=== PATIENT | female | born 1990 | race Caucasian/White ===

== ENCOUNTER 2023-03-11 12:54 | Outpatient (CLI) | payer OTHER | END 2023-03-11 14:20 | disposition home or self-care (01) | LOC: NST 12:54 | PROVIDERS: ATTEND Obstetrics & Gynecology Maternal & Fetal Medicine | DX: Z34.83 Encounter for supervision of other normal pregnancy, third trimester (principal) ==

== ENCOUNTER 2023-03-24 11:59 | Inpatient (IN) | payer OTHER ==
[~2023-03-24] VITALS: Ht 157.5 cm; Wt 2.7 kg
[2023-04-06] MEDS ORDERED: PRENATAL TABLE1 EAC1 PO (17:10)
[2023-04-07] MEDS ORDERED: DOCUSATE CALCI240 MG (15:06)
== END 2023-04-09 15:46 | disposition home or self-care (01) | DRG 788 ==
LOC: LDR 04-05 13:30 → OB/GYN 04-06 16:39
PROVIDERS: Obstetrics & Gynecology Gynecology; ADMIT Obstetrics & Gynecology; ATTEND Obstetrics & Gynecology
PROC: 3E0P7VZ Introduction of Hormone into Female Reproductive, Via Natural or Artificial Opening (ICD-10-PCS; 2023-04-06)
PROC: 4A1HXCZ Monitoring of Products of Conception, Cardiac Rate, External Approach (ICD-10-PCS; 2023-04-06)
PROC: 3E033VJ Introduction of Other Hormone into Peripheral Vein, Percutaneous Approach (ICD-10-PCS; 2023-04-07)
PROC: 10D00Z1 Extraction of Products of Conception, Low, Open Approach (ICD-10-PCS; principal; 2023-04-07 17:00)
DX: O33.8 Maternal care for disproportion of other origin (principal); Z3A.39 39 weeks gestation of pregnancy; Z37.0 Single live birth; Z20.822 Contact with and (suspected) exposure to COVID-19

== ENCOUNTER 2023-04-05 11:06 | Outpatient (CLI) | payer OTHER ==
[2023-04-06] MEDS ORDERED: PRENATAL TABLE1 EAC1 PO (17:10)
== END 2023-04-05 11:57 | disposition home or self-care (01) ==
LOC: NST 11:06
PROVIDERS: ATTEND Obstetrics & Gynecology
DX: Z34.83 Encounter for supervision of other normal pregnancy, third trimester (principal)

== ENCOUNTER → 2024-08-04 | Emergency (ER) | payer OTHER ==
[~2024-08-04] VITALS: Ht 157.5 cm; Wt 54.4 kg
[~2024-08-04] MED LIST: BENZONATATE200 M1 PO; DOCUSATE CALCI240 MG; LEVALBUTER0.63 MG/3 IH; MEDROLPACK PO; PEPCID AC20 MG PO; PRENATAL TABLE1 EAC1 PO; SINGULAIR10 MG PO; ZITHROMAX500 MG PO
== END | disposition home or self-care (01) ==
LOC: ER 10:40
DX: R53.81 Other malaise (principal); J45.901 Unspecified asthma with (acute) exacerbation; Z91.013 Allergy to seafood; Z88.6 Allergy status to analgesic agent

== ENCOUNTER 2024-08-19 12:47 | Emergency (ER) | payer OTHER ==
[~2024-08-19] VITALS: Ht 157.5 cm; Wt 54.4 kg
[2024-08-19 16:13] LABS: HEMOGLOBIN 12.1 g/dL (12.0-15.00); MEAN CELL VOLUME 91.3 fL (80.00-100.00); MEAN CORPUSCULAR HEMOGLOBIN 30.6 pg (27.00-32.0); MEAN CORPUSCULAR HGB CONC 33.5 g/dl (32.0-36.0); PLATELET COUNT 162 K/uL (150-450); RED BLOOD COUNT 3.94 M/uL (4.00-6.00); RED CELL DISTRIBUTION WIDTH 12.7 % (11.5-14.5)
[2024-08-19] MEDS ORDERED: AMOX1TAB5 PO (17:44)
[2024-08-19] MEDS ORDERED: TYLENOL325 MG PO (17:48)
== END 2024-08-19 18:35 | disposition home or self-care (01) ==
LOC: ER 12:49
DX: R53.81 Other malaise (principal); J40 Bronchitis, not specified as acute or chronic; Z20.822 Contact with and (suspected) exposure to COVID-19; Z88.6 Allergy status to analgesic agent; Z91.013 Allergy to seafood

== ENCOUNTER 2025-04-20 09:37 | Emergency (ER) | payer OTHER ==
[~2025-04-20] VITALS: Ht 157.5 cm; Wt 59.9 kg
[~2025-04-20 09:37] MED LIST changes: +AMOX1TAB5 PO; +TYLENOL325 MG PO
[2025-04-20] MEDS ORDERED: ALBUT PO (09:54)
[2025-04-20] MEDS ORDERED: [UNRECOGNIZED DRUG - OTHER] PO (09:54)
[2025-04-20] MEDS ORDERED: MUCINEX DM ER1 EAC1 PO (09:56)
[2025-04-20] MEDS ORDERED: METHYLPREDNISOLONE SOD SUCC 40 MG VIAL IV STA (11:26)
[2025-04-20] MEDS ORDERED: ALBUTEROL SULFATE 3 ML/2.5 MG AMPUL.NEB IH SCH (11:30)
[2025-04-20] MEDS ORDERED: IPRATROPIUM BROMIDE 0.5 MG/2.5 ML AMPUL.NEB IH SCH (11:30)
[2025-04-20] MEDS ORDERED: METHYLPREDNISOLONE SOD SUCC 40 MG VIAL ONE (11:35)
[2025-04-20] MEDS ORDERED: WATER FOR INJ.,BACTERIOSTATIC 30 ML VIAL IJ ONE (11:43)
[2025-04-20 12:22] LABS: BASO % 0.1 % (0.1-1.2); EOS # 0.04 (0.04-0.54); EOS % 0.4 % (0.7-7.0); LYMPH # 2.13 (1.18-3.74); LYMPH % 23.0 % (19.3-53.1); MEAN PLATELET VOLUME 9.60 fl (9.4-12.4); MONO # 0.56 (0.24-0.82); MONO % 6.1 % (4.7-12.5); NEUT # 6.47 (1.56-6.13); NEUT % 70.0 % (34.0-71.1); RED CELL DISTRIBUTION WIDTH 12.4 % (11.6-14.4)
[2025-04-20 13:11] LABS: COVID-19 AG NEGATIVE (NEGATIVE)
[2025-04-20] MEDS ORDERED: IPRATROPIUM BROMIDE 0.5 MG/2.5 ML AMPUL.NEB IH ONE (14:14)
[2025-04-20] MEDS ORDERED: SINGULAIR10 MG PO (14:46)
[2025-04-20] MEDS ORDERED: AMOX-CLAV 875-1 EAC1 PO (14:46)
[2025-04-20] MEDS ORDERED: BENZONATATE200 M1 PO (14:46)
== END 2025-04-20 17:10 | disposition home or self-care (01) ==
LOC: ER 09:37
PROVIDERS: General Practice
DX: J06.9 Acute upper respiratory infection, unspecified (principal); Z88.6 Allergy status to analgesic agent; Z91.013 Allergy to seafood; Z20.822 Contact with and (suspected) exposure to COVID-19